=== PATIENT | female | born 1970 | race African-American/Black ===

== ENCOUNTER 2019-07-30 18:28 | Emergency (ER) | payer OTHER ==
[~2019-07-30] VITALS: Ht 165.1 cm; Wt 100.2 kg
--- OUTSIDE RECORDS SUMMARY | 2019-07-30 18:31 | XMS REPORT ---
Author [facility] Address Unknown Phone Unavailable Care Team Providers Care Technical Proposal Writer Name Role Phone Unavailable Unavailable Payers Payer Name Policy Type Policy Number Effective Date Expiration Date Problems This patient has no known problems. Allergies, Adverse Reactions, Alerts Allergy Name Allergy Type Status Severity Reaction(s) Onset Date Inactive Date Treating Clinician Comments aspirin DA Active U 2018-07-21 00:00:00 albuterol DA Active U 2018-07-21 00:00:00 aspirin DA Active U 2009-04-04 00:00:00 No Known Contrast Allergies DA Active U 2008-04-02 00:00:00 No Known Drug Allergies DA Active U 2008-04-02 00:00:00 No Known Food Allergies DA Active U 2008-04-02 00:00:00 No Known Other Allergies DA Active U 2008-04-02 00:00:00 Medications This patient has no known medications. Encounters Start Date/Time End Date/Time Encounter Type Admission Type Attending [facility] Care Facility Care Department Encounter ID 2019-05-28 14:41:00 2019-05-28 14:41:00 Emergency E [facility] [id number] 2019-04-13 08:27:00 2019-04-13 08:27:00 Emergency E [facility] [id number] 2018-12-06 10:46:00 2018-12-06 10:46:00 Emergency E [facility] [id number] 2017-07-09 01:27:10 2017-07-09 01:27:10 Emergency [facility] [id number] 2017-05-26 10:37:44 2017-05-26 10:37:44 Emergency [facility] [id number]
[2019-07-30] MEDS ORDERED: ALBUTEROL/IPRATROPIUM 3 ML NEB ONE (19:06)
[2019-07-30] MEDS ORDERED: ALBUTEROL/IPRATROPIUM 3 ML NEB NEB ONE (19:15)
== END 2019-07-30 19:39 | disposition home or self-care (01) ==
LOC: FSED 18:28
DX: R05 Cough (principal); J04.2 Acute laryngotracheitis
CPT/HCPCS: 99282